=== PATIENT | female | born 1930 | race Caucasian/White ===

== ENCOUNTER 2017-08-30 11:42 | Emergency (ER) | payer MEDICARE, BC ==
[~2017-08-30 11:42] MED LIST: ALDACTONE25 MG PO; ASPIRIN E.C. 8181 M1 PO; CEFUROXIME250 MG PO; COLACE 100100 MG/CAP PO; DOXYCYCLINE 10100 MG PO; DUO-KAPS1 CAP PO; EFUDEX5% TP; IPRATROPIUM BROM3 M1 IH; LEVOXYL0.1 M1 PO; METAMUCIL1 PDR PO; NYSTATIN UD5 ML/CUP PO; OMEGA 31000 MG PO; OMEPRAZOLE20 MG PO; PREDNISONE10 M1 PO; REGLAN 10MG10 MG/TAB PO; REMERON15 MG PO; RT SPIRIVA INH18 MCG IH; SENOKOT PO; TUSSIONEX PENNKI5 ML PO; VITAMIN B121000 MC2 SL; VITAMIN D32000 IU PO; ZANTAC150 MG PO; ZOSTRIX 0.025% TP
[2017-08-30 12:56] LABS: URINE APPEARANCE HAZY; URINE COLOR YELLOW
[2017-08-30 12:57] LABS: URINE BILIRUBIN NEGATIVE (NEGATIVE); URINE BLOOD NEGATIVE (NEGATIVE); URINE GLUCOSE NEGATIVE (NEGATIVE); URINE KETONE NEGATIVE (NEGATIVE); URINE LEUKOCYTE ESTERASE 2+ (NEGATIVE); URINE MUCUS PRESENT (NOT PRESENT); URINE NITRATE NEGATIVE (NEGATIVE); URINE PROTEIN(semi-quant) NEGATIVE (NEGATIVE); URINE UROBILINOGEN NORMAL (NORMAL); URINE WBC 16-30 /hpf (0-3)
[2017-08-30 13:10] LABS: ALBUMIN 4.1 g/dL (3.5-5.0); BUN/CREATININE RATIO 37.6 (6.0-26.0); CALCIUM 9.7 mg/dL (8.4-10.2); POTASSIUM 3.8 mmol/L (3.6-5.0); TOTAL BILIRUBIN 0.7 mg/dL (0.2-1.3); TOTAL PROTEIN 7.4 g/dL (6.3-8.2)
[2017-08-30 13:11] LABS: LIPASE 67 U/L (23-300)
[2017-08-30 13:14] LABS: HEMATOCRIT 38.2 % (37.0-47.0); HEMOGLOBIN 12.4 g/dL (12.5-16.0); MEAN CELL VOLUME 87 fl (78-100); MEAN CORPUSCULAR HEMOGLOBIN 28 pg (27-31); MEAN CORPUSCULAR HGB CONC 33 g/dL (33-37); MEAN PLATELET VOLUME 9.7 fl (7.4-10.4); PLATELET COUNT 491 K/mm3 (130-400); RED BLOOD COUNT 4.41 M/mm3 (4.10-5.30); RED CELL DISTRIBUTION WIDTH 13.3 % (11.5-14.5); WHITE BLOOD COUNT 13.1 K/mm3 (4.8-10.8)
[2017-08-30 13:18] LABS: CKMB ISOENZYME 1.8 ng/mL (0.6-3.5)
[2017-08-30 13:23] LABS: TROPONIN-I < 0.03 ng/mL (0.00-0.06)
[2017-08-30 13:33] LABS: LYMPHOCYTE 11 % (20-51); MONOCYTE 3 % (3-10); NEUTROPHILS 86 % (42-75)
[2017-08-30 14:28] VITALS: BP 179/86
== END 2017-08-30 14:37 | disposition home or self-care (01) ==
LOC: ED 11:42
PROVIDERS: Physician Assistant
DX: N39.0 Urinary tract infection, site not specified (principal); K59.00 Constipation, unspecified; J44.9 Chronic obstructive pulmonary disease, unspecified; E03.9 Hypothyroidism, unspecified; H35.30 Unspecified macular degeneration

== ENCOUNTER 2017-09-07 10:38 | Emergency (ER) | payer MEDICARE, BC ==
[2017-09-07] MEDS ORDERED: AZO BLADDER CO300 MG PO (10:51)
[2017-09-07 11:25] LABS: EOS # 0.5 (0.04-0.40); EOS % 3.7 % (1.0-5.0); HEMATOCRIT 41.8 % (37.0-47.0); HEMOGLOBIN 13.4 g/dL (12.5-16.0); LYMPH# 1.8 (1.50-4.00); MEAN CELL VOLUME 87 fl (78-100); MEAN CORPUSCULAR HEMOGLOBIN 28 pg (27-31); MEAN CORPUSCULAR HGB CONC 32 g/dL (33-37); MEAN PLATELET VOLUME 10.2 fl (7.4-10.4); MONO # 1.2 (0.20-0.80); PLATELET COUNT 357 K/mm3 (130-400); RED CELL DISTRIBUTION WIDTH 14.1 % (11.5-14.5); WHITE BLOOD COUNT 13.2 K/mm3 (4.8-10.8)
[2017-09-07 11:29] LABS: NEU # 9.7 (1.40-6.50)
[2017-09-07 11:35] LABS: ALBUMIN 3.7 g/dL (3.5-5.0); BUN/CREATININE RATIO 23.4 (6.0-26.0); CALCIUM 9.1 mg/dL (8.4-10.2); POTASSIUM 4.3 mmol/L (3.6-5.0); TOTAL BILIRUBIN 1.2 mg/dL (0.2-1.3); TOTAL PROTEIN 6.6 g/dL (6.3-8.2)
[2017-09-07 11:44] LABS: D-DIMER 1.01 mg/L FEU (0.15-0.50)
[2017-09-07 11:47] LABS: TROPONIN-I < 0.03 ng/mL (0.00-0.06)
[2017-09-07 15:07] VITALS: BP 132/73
[2017-09-07] MEDS ORDERED: MIRALAX17 GM PO (16:49)
[2017-09-07] MEDS ORDERED: COLACE100 M1 PO (16:49)
== END 2017-09-07 15:05 | disposition other institution (70) ==
LOC: ED 10:38
PROVIDERS: Family Medicine
DX: J44.1 Chronic obstructive pulmonary disease with (acute) exacerbation (principal); R09.02 Hypoxemia; R10.13 Epigastric pain; E03.9 Hypothyroidism, unspecified; H35.30 Unspecified macular degeneration; Z87.891 Personal history of nicotine dependence
CPT/HCPCS: Q9967

== ENCOUNTER 2017-09-11 11:55 | Inpatient (IN) | payer MEDICARE, BC ==
[~2017-09-11] VITALS: Ht 165.1 cm; Wt 48.2 kg
[~2017-09-11 11:55] MED LIST changes: +AZO BLADDER CO300 MG PO; +COLACE100 M1 PO; +MIRALAX17 GM PO
[2017-09-11 17:36] VITALS: BP 139/64
[2017-09-11 19:02] VITALS: BP 157/87
--- NOTE | 2017-09-11 19:05 | NUR ---
REPORT RECEIVED FROM RONALD De La Cruz RN.
--- NOTE | 2017-09-11 20:15 | NUR ---
THIS RN IN WITH PATIENT TO ADMINISTER HS MEDICATIONS. PATIENT IS ASLEEP ALREADY, BUT IS EASILY AWAKENED. PATIENT IS DROWSY, BUT IS ORIENTED X3 AND CONSUMES HER MEDICATIONS WITH NO DIFFICULTY. PATIENT DID REQUIRE SOME MILD EDUCATION AND ENCOURAGMENT TO TAKE THE MEDICATION, SHE HAD FORGOTTEN WHAT SHE WAS PRESCRIBED. PATIENT REQUESTED ASSISTANCE IN AMBULATING TO THE BATHROOM, AND DOES SO WITH SBA ONLY. PATIENT USES HER WALKER AND HAS A STEADY GAIT. PATIENT ALSO PROVIDED EDUCATION AT THIS TIME REGARDING AMBULATING SAFELY, SHE WANTED TO WALK IN HER REGULAR SOCKS, BUT AGREED TO WALK WITH HER SHOES ON AFTER ENCOURAGEMENT. PATIENT DOES NOT APPEAR TO BE IN ANY OBVIOUS DISTRESS AT THIS TIME. PATIENT DENIES HAVING ANY PAIN. PATIENT IS ASSISTED BACK INTO BED. HOB ELEVATED TO A 45 DEGREE ANGLE PER HER REQUEST. BED RAILS UP X2. CALL LIGHT WITHIN REACH. BED ALARM ARMED. CLOSE MONITORING AND HOURLY ROUNDING CONTINUE.
--- NOTE | 2017-09-12 00:56 | NUR ---
PATIENT CONTINUES TO REST QUIETLY IN BED. PATIENT DOES NOT APPEAR TO BE IN ANY OBVIOUS DISTRESS AT THIS TIME. PATIENT CHANGES HER POSITION IN BED INDEPENDENTLY THROUGHOUT THE NIGHT. PATIENT HAS AMBULATED TO THE BATHROOM SEVERAL TIMES THROUGHOUT THE NIGHT WITH NO ISSUES. PATIENT REQUIRES STANDBY ASSIST ONLY. PATIENT WOKE UP ONCE THIS EVENING, AND SET OFF HER BED ALARM. UPON ENTERING THE ROOM, PATIENT WAS OBSERVED TO BE ANXIOUS, EVIDENCED BY HER TONE OF VOICE, RAPID RATE OF BREATHING AND RESTLESSNESS. PATIENT STATES ANXIOUSLY "I COULDN'T FIND MY CALL LIGHT!" HER CALL LIGHT WAS OBSERVED TO BE SLIGHTLY WEDGED BETWEEN HER MATTRESS AND SIDE RAIL. PATIENT IS PROVIDED ACTIVE LISTENING, AND HER ANXIETY RESOLVES. HOB ELEVATED TO A 45 DEGREE ANGLE. BED RAILS UP X2. CALL LIGHT WITHIN REACH. BED ALARM ARMED. PATIENT STATES SHE DOES NOT WANT THE SCD'S ON ANY LONGER TONIGHT. CLOSE MONITORING AND HOURLY ROUNDING CONTINUE.
--- NOTE | 2017-09-12 04:32 | NUR ---
PATIENT CONTINUES TO REST QUIETLY IN BED. PATIENT CHANGES HER POSITION IN BED INDEPENDENTLY THROUGHOUT THE NIGHT. PATIENT DOES NOT APPEAR TO BE IN ANY OBVIOUS DISTRESS AT THIS TIME. PATIENT HAS AMBULATED TO THE BATHROOM SEVERAL TIMES THROUGHOUT THE NIGHT. BED RAILS UP X2. CALL LIGHT WITHIN REACH. BED ALARM ARMED. CLOSE MONITORING AND HOURLY ROUNDING CONTINUE.
[2017-09-12 06:56] VITALS: BP 141/75
--- NOTE | 2017-09-12 07:01 | NUR ---
REPORT GIVEN TO CLAUDIA CAMPOS.
--- NOTE | 2017-09-12 07:12 | NUR ---
Received report from CLAUDIA Chua.
--- NOTE | 2017-09-12 07:14 | NUR ---
REPORT GIVEN TO CELSO Rogel RN.
--- NOTE | 2017-09-12 09:30 | NUR ---
Patient sitting in chair at bedside when this nurse entered room. Alert and oriented to person, place and time. Tolerated assessment well. Patient is able to voice her needs. BLCTA in upper, middle and lower lobes anterior and posterior. Abdomen is soft, flat with no pain with deep or soft palpation. No masses noted. Bowel sounds heard in all four qaudrants. Capillary refill brisk less than three seconds. Skin is intact with no lesions noted, warm to touch and pale. IV to right wrist. No drainage, warmth or edema noted at IV site. Minimal edema noted to bilateral lower extremities. Patient was able to voice pain with ambulation on the left foot. This nurse noted hand tremors while at rest this morning. Complaints of feeling anxious and patient stated that she had stopped her antianxiety medication awhile ago but would like to start another medication. Resident did ambulate to the bathroom and did show signs of dyspnea with excertion but did relax at rest. Call light with in reach and will continue to moniotr.
--- NOTE | 2017-09-12 10:47 | NUR ---
Patient stated that she feels tense and this is why she has hand tremors occasionally. Patients granddaughter stated that she doesn't want the patient to have something that could cause a fall while on medication. Patient stated that she wouldn't mind something in a small dose to help. Information communicated to NIHCOL Moran.
--- NOTE | 2017-09-12 12:52 | NUR ---
Patient continues to sit in recliner chair at bedside. Patient denies pain at this time and is able to voice her needs. Call light and fluids with in reach. Will continue to monitor.
--- NOTE | 2017-09-12 17:59 | NUR ---
Patient continues to sit in recliner chair at bedside. Patients granddaughter was here most of the day and left at 1745. Per the granddaughter the patient had a productive day. She will return in the morning between 1030-11. Patient denies needing anything at this time. Call light with in reach. Will continue to monitor.
[2017-09-12 18:20] VITALS: BP 139/62
--- NOTE | 2017-09-12 18:44 | NUR ---
Report given to CLAUDIA Chua.
--- NOTE | 2017-09-12 18:45 | NUR ---
REPORT RECEIVED FROM MARCIANO De La Cruz RN STUDENT.
--- NOTE | 2017-09-12 20:48 | NUR ---
PATIENT ADMINISTERED HER HS MEDICATIONS. FOREST DOES NOT APPEAR TO BE IN ANY OBVIOUS DISTRESS AT THIS TIME. PATIENT IS OBSERVED TO BE IN BED, ALREADY SLEEPING, BUT SHE IS EASILY AROUSABLE. PATIENT DENIES HAVING ANY PAIN. PATIENT CONSUMES HER MEDICATIONS WITH NO PROBLEMS, BUT VOICES HER DISLIKE FOR THE ORAL PREDNISONE. PATIENT REFUSED THE SCD'S AGAIN TONIGHT. PATIENT HAS NO REQUESTS OR OTHER COMPLAINTS AT THIS TIME. PATIENT'S HOB IS ELEVATED TO A 45 DEGREE ANGLE PER HER REQUEST. BED RAILS UP X2. BED ALARM ARMED. CALL LIGHT WITHIN REACH. CLOSE MONITORING AND HOURLY ROUNDING CONTINUE.
--- NOTE | 2017-09-13 00:21 | NUR ---
PATIENT CONTINUES TO REST QUIETLY IN BED. PATIENT CHANGES HER POSITION IN BED INDEPENDENTLY THROUGHOUT THE NIGHT. PATIENT DOES NOT APPEAR TO BE IN ANY OBVIOUS DISTRESS AT THIS TIME. PATIENT HAS NOT REQUESTED ASSISTANCE IN AMBULATING TO THE BATHROOM YET TONIGHT, WHICH SHE DID LAST NIGHT MULTIPLE TIMES. PATIENT HAS HAD NO COMPLAINTS OR REQUESTS. HOB ELEVATED TO A 45 DEGREE ANGLE PER PATIENT'S REQUEST. BED RAILS UP X2. BED ALARM ARMED. CALL LIGHT WITHIN REACH. CLOSE MONITORING AND HOURLY ROUNDING CONTINUE.
--- NOTE | 2017-09-13 04:10 | NUR ---
PATIENT CONTINUES TO REST QUIETLY IN BED. PATIENT DOES NOT APPEAR TO BE IN ANY OBVIOUS DISTRESS AT THIS TIME. PATIENT CHANGES HER POSITION IN BED INDEPENDENTLY THROUGOUT THE NIGHT. PATIENT'S HOB REMAINS ELEVATED AT A 45 DEGREE ANGLE PER PER REQUEST. BED RAILS UP X2. BED ALARM ARMED. CALL LIGHT WITHIN REACH. CLOSE MONITORING AND HOURLY ROUNDING CONTINUE.
[2017-09-13 06:39] VITALS: BP 144/74
--- NOTE | 2017-09-13 06:51 | NUR ---
REPORT GIVEN TO MARCIANO RN STUDENT.
--- NOTE | 2017-09-13 07:10 | NUR ---
Received report from CLAUDIA Chua.
--- NOTE | 2017-09-13 08:45 | NUR ---
Patient sitting in recliner chair eating breakfast this morning when this nurse entered the room. Alert and oriented to person, palce and time. Tolerated the assessment. BLCTA in upper, middle and lower lobes anterior and posterior. Abdomen is flat but does seem to be more firm this morning with palpation. No massess or gaurding noted with deep or soft palpation. Bowel sounds noted in all four quadrants. Patient denied pain with palpation. BLLE ankles have edema with 1+pitting that rebounds fast. Bilateral heels are reddened, intact and blanchabel. Toes on bilateral feet are red with shiny skin on the top of the bony areas of toes. Negative Homans sign and no warmth or redness noted. Patient was able to rise with one attempt from the chair. Reddened area to the dorsal part of the buttocks. Intact and patient does state that she has some tenderness in this area. IV site to right wrist. no warmth, edema or drainage noted. ABG's were drawn while in the room and patient tolerated well. Skin is warm, dry and intact with no lessions noted. Minimal bruising on the left medial wrist from previous ABG's drawn. Varying colors. Continues to use the incentive spirometer. Non-skid socks applied while up from bed. Patient is able to voice her needs and call light with in reach. Will continue to monitor.
--- NOTE | 2017-09-13 09:31 | NUR ---
Air matress applied to bed, chair cushion to help while out of bed. x2 7.5x7.5 Mepilex applied to reddened areas below the buttocks.
--- NOTE | 2017-09-13 09:49 | NUR ---
Dyspnea with exertion during shower this morning. Patient was encouraged to slow her breathing and try to relax. Patient returned to normal with in a few minutes with unlabored breathing.
--- NOTE | 2017-09-13 11:20 | NUR ---
Patient and patients granddaughters would like for the patient to be D/C'd on 09-16-17 if patient continues to do well. Dr. Donnelly is out of the office today. As the patient is on swing bed, PT and OT will need to be involved with the care coordination and transition to home. Per PT, they will re-evaluate on 09-16-17 and update the healthcare team.
--- NOTE | 2017-09-13 15:25 | NUR ---
Patient continues to sit in the recliner chair at bedside. Patient has been enjoying a puzzle with the assistance of staff members. Patient is very jovial and excited to be doing something to keep her busy. Patient continues to voice her needs and states that she is not in any pain. Call light with in reach and will continue to monitor.
--- NOTE | 2017-09-13 17:32 | NUR ---
Patient finished a puzzle and is eating supper at this time. Granddaughter here to visit. Patient continues to be in a Jovial mood visiting with staff. Call light with in reach and will continue to monitor.
[2017-09-13 18:56] VITALS: BP 136/57
--- NOTE | 2017-09-13 19:08 | NUR ---
Report given to CLAUDIA Moise.
--- NOTE | 2017-09-13 19:19 | NUR ---
Report received from Yeny Ochoa nursing care partner.
--- NOTE | 2017-09-13 19:50 | NUR ---
Resting in bed, with eye mask on. Bed alarm set. Removes eye mask when spoken too. Denies SOB, chest pain or nausea. Denies abd pain. Denies having any pain. See shift assessment.
--- NOTE | 2017-09-13 22:40 | NUR ---
Q hourly checks done. Has been resting in bed, awake and TV on, Ambulated to the bathroom with one person assist. Able to bearfull weight and gait steady. Tolerated breathing treatment without difficulty, denies SOB or chest pain
--- NOTE | 2017-09-14 05:46 | NUR ---
Q hourly checks done. Bed alarms set. Pt has repositioned self. Currently resting in bed with sleep mask on. At 0520 ambulated to the bathroom. Pt voided, urine missed collection hat. Used gait belt, erp engineer socks and Rob RESTAURANT ASSISTANT at side. Gait steady. Stated she became slight SOB, when ambulating back to bed. Sa02 97% on room air. Pulse 81, Respirations even and unlabored.
[2017-09-14 06:00] VITALS: BP 148/68
--- NOTE | 2017-09-14 07:20 | NUR ---
Report given to Solange Castanon RN
--- NOTE | 2017-09-14 09:15 | NUR ---
Patient alert and oriented. Sitting up in the chair. Denies pain. Refused miralax, states "I've been going too much." Difficulty noted with swallowing prednisone tablet this morning. Patient states "I just can't swallow big pills." Patient's granddaughters are at bedside with questions about anticipated discharge date. Granddaughters state that they would like for her to be discharged on Saturday or Saturday so that they can be present to help transition her back home for a week prior to the granddaughter returning to [place]. Granddaughters state that they feel like she is back to her baseline. Patient denies needs or questions. Fall precautions in place.
[2017-09-14 18:18] VITALS: BP 140/65
--- NOTE | 2017-09-14 20:45 | NUR ---
Report received from Solange TAYLOR. Patient awaken for assessment and HS medications. Oriented x4. Denies pain. Assessment completed. Scheduled HS medications administered. Refused Miralax. Bed alarm on. Call light in reach.
--- NOTE | 2017-09-15 00:15 | NUR ---
Resting with eyes closed. No signs of pain or distress. Bed alarm on. Call light in reach.
--- NOTE | 2017-09-15 00:56 | NUR ---
Report to Guadalupe TAYLOR.
--- NOTE | 2017-09-15 01:00 | NUR ---
REPORT RECEIVED FROM ANDRE De La Cruz LPN.
--- NOTE | 2017-09-15 04:07 | NUR ---
PATIENT CONTINUES TO REST QUIETLY IN BED. PATIENT DOES NOT APPEAR TO BE IN ANY DISTRESS. PATIENT CHANGES HER POSITION IN BED INDEPENDENTLY THROUGHOUT THE NIGHT. HOB ELEVATED TO A 45 DEGREE ANGLE PER PATIENT'S REQUEST. BED RAILS UP X2. BED ALARM ARMED. CALL LIGHT WITHIN REACH. CLOSE MONITORING AND HOURLY ROUNDING CONTINUE.
[2017-09-15 05:55] VITALS: BP 161/78
[2017-09-15 06:25] VITALS: BP 161/78
--- NOTE | 2017-09-15 07:09 | NUR ---
REPORT GIVEN TO RONALD De La Cruz RN.
--- NOTE | 2017-09-15 09:50 | NUR ---
Patient alert and oriented. Sitting up in the chair. Denies pain. Reports shortness of breath "once in a while" with exertion. Has intermittent dry cough. Dressings removed from back of bilateral thighs under buttocks. Skin is intact and blanchable, skin appears dry with small amount of redness noted to back of right thigh. Skin protectant cream applied. Patient reports that her legs are tingling, states that this is not new and happens intermittently at home. Patient asks "why are you guys not putting support hose on me?" Patient states that she wears "support hose" at home to help with the tingling in her legs. Dr. Villanueva notified of patient's request for "support hose." LASHA hose ordered and applied to bilateral lower exxtremities. Patient asks when she will be discharged to home. States that she is ready to be home and out of the hospital. Denies needs or questions at this time. Fall precautions in place.
--- NOTE | 2017-09-15 13:40 | NUR ---
Patient alert and oriented. Sitting up in the chair. Denies pain. Patient's granddaughter Yeny is present. Yeny states that she feels like her grandmother is back to her baseline and asks if the patient could be discharged on Saturday. Patient also states that she would like to go home as soon as possible. Dr. Villanueva notified. Two day medicare notice given to patient and explained. Form signed. Will notify Dr. Donnelly in am of patients request to be discharged Saturday09/17/17. Patient and granddaughter deny questions or needs at this time. Fall precautions in place.
[2017-09-15 18:35] VITALS: BP 132/63
--- NOTE | 2017-09-15 19:10 | NUR ---
Report received from Solange Castanon RN
--- NOTE | 2017-09-15 20:30 | NUR ---
2020 Pt resting in bed, with eye mask on. Bed alarm set. Removes eye mask when spoken too. Denies having any chest pain. No c/o's of SOB. When I asked pt if she was SOB. Pt stated "a little." Lungs CTA. Heart rate 91, respirations 24 and even. Sa02 98% on room air. 2029 See shift assessment.
--- NOTE | 2017-09-16 00:38 | NUR ---
REPORT RECEIVED FROM MYLES Rogel RN.
--- NOTE | 2017-09-16 04:41 | NUR ---
PATIENT CONTINUES TO REST QUIETLY IN BED. PATIENT CHANGES HER POSITION IN BED INDEPENDENTLY THROUGHOUT THE NIGHT. PATIENT DOES NOT APPEAR TO BE IN ANY OBVIOUS DISTRESS. PATIENT HAS NO COMPLAINTS OR REQUESTS. PATIENT AMBULATES TO THE BATHROOM WITH SBA FROM STAFF SOMETIME THROUGHOUT THE NIGHT. HOB ELEVATED TO A 35 DEGREE ANGLE PER PATIENT'S REQUEST. BED RAILS UP X2. BED ALARM ARMED. CALL LIGHT WITHIN REACH. CLOSE MONITORING AND HOURLY ROUNDING CONTINUE.
[2017-09-16 06:24] VITALS: BP 146/74
--- NOTE | 2017-09-16 07:00 | NUR ---
REPORT GIVEN TO RONALD De La Cruz RN.
[2017-09-16] MEDS ORDERED: LEVOTHYROXIN0.088 MG PO (12:09)
[2017-09-16 12:45] LABS: ALBUMIN 2.7 g/dL (3.5-5.0); CALCIUM 8.1 mg/dL (8.4-10.2); POTASSIUM 4.1 mmol/L (3.6-5.0)
[2017-09-16 13:34] VITALS: BP 132/63
--- NOTE | 2017-09-16 14:52 | NUR ---
Patient alert and oriented. Denies pain. Reports mild shortness of breath with exertion. Patients granddaughter oumar at bedside. Patient discharged to home. Discharge instructions provided. Prescription sent to [facility]. Patient and granddaughter ask questions regarding home medications. They are unsure of what nebulizer medications patient has at home. Instructed to call Dr. Donnelly with medication needs or bring list to follow up appointment. Patient and granddaughter verbalize understanding and deny questions or needs at this time. Patient out of facility via wheelchair to [facility] without incident. Steady gait noted.
== END 2017-09-16 14:52 | disposition home health service (06) | DRG 948 ==
LOC: MED/SURG 11:55
PROVIDERS: Family Medicine; ADMIT Physician Assistant
DX: R53.81 Other malaise (principal); E03.9 Hypothyroidism, unspecified; J44.9 Chronic obstructive pulmonary disease, unspecified; Z87.891 Personal history of nicotine dependence
CPT/HCPCS: J1650; J7512

== ENCOUNTER → 2017-10-18 | Outpatient (CLI) | payer MEDICARE, BC ==
[~2017-10-18] MED LIST changes: +LEVOTHYROXIN0.088 MG PO
[2017-10-18 16:33] LABS: URINE APPEARANCE CLEAR; URINE COLOR YELLOW
[2017-10-18 16:34] LABS: PH-URINE 6.5 (5.0 - 8.0); URINE BILIRUBIN NEGATIVE (NEGATIVE); URINE BLOOD NEGATIVE (NEGATIVE); URINE GLUCOSE NEGATIVE (NEGATIVE); URINE KETONE NEGATIVE (NEGATIVE); URINE LEUKOCYTE ESTERASE 1+ (NEGATIVE); URINE NITRATE NEGATIVE (NEGATIVE); URINE PROTEIN(semi-quant) TRACE mg/dL (NEGATIVE); URINE UROBILINOGEN NORMAL (NORMAL); URINE WBC 16-30 /hpf (0-3)
== END ==
LOC: LAB 15:47
PROVIDERS: Family Medicine
DX: R30.0 Dysuria (principal)

== ENCOUNTER → 2017-12-24 | Outpatient (CLI) | payer MEDICARE, BC ==
[2017-12-24 15:40] LABS: ALBUMIN 4.3 g/dL (3.5-5.0); BUN/CREATININE RATIO 34.8 (6.0-26.0); CALCIUM 10.6 mg/dL (8.4-10.2); POTASSIUM 4.4 mmol/L (3.6-5.0); TOTAL BILIRUBIN 0.4 mg/dL (0.2-1.3); TOTAL PROTEIN 7.6 g/dL (6.3-8.2)
[2017-12-25 00:08] LABS: PTH,INTACT 26.3 pg/mL (6.6-88.9)
== END ==
LOC: LAB 15:07
PROVIDERS: Family Medicine
DX: E83.51 Hypocalcemia (principal); I10 Essential (primary) hypertension; E03.9 Hypothyroidism, unspecified; Z88.2 Allergy status to sulfonamides

== ENCOUNTER → 2018-07-25 | Outpatient (CLI) | payer MEDICARE, BC | LOC: LAB 14:17 | DX: E03.9 Hypothyroidism, unspecified (principal) ==

== ENCOUNTER → 2018-12-09 | Outpatient (CLI) | payer MEDICARE, BC ==
[2018-12-09 15:05] LABS: EOS # 0.2 (0.04-0.40); EOS % 2.4 % (1.0-5.0); HEMATOCRIT 38.6 % (37.0-47.0); LYMPH# 3.3 (1.50-4.00); MEAN CELL VOLUME 88 fl (78-100); MEAN CORPUSCULAR HEMOGLOBIN 28 pg (27-31); MEAN CORPUSCULAR HGB CONC 31 g/dL (33-37); MEAN PLATELET VOLUME 9.6 fl (7.4-10.4); MONO # 0.6 (0.20-0.80); NEU # 5.5 (1.40-6.50); PLATELET COUNT 364 K/mm3 (130-400); RED BLOOD COUNT 4.37 M/mm3 (4.10-5.30); RED CELL DISTRIBUTION WIDTH 13.5 % (11.5-14.5); WHITE BLOOD COUNT 9.7 K/mm3 (4.8-10.8)
[2018-12-09 15:35] LABS: ALBUMIN 4.8 g/dL (3.5-5.0); POTASSIUM 4.1 mmol/L (3.6-5.0); TOTAL BILIRUBIN 0.6 mg/dL (0.2-1.3); TOTAL PROTEIN 8.2 g/dL (6.3-8.2)
[2018-12-09 15:57] LABS: PH-URINE 5.5 (5.0 - 8.0); URINE APPEARANCE CLEAR; URINE BILIRUBIN NEGATIVE (NEGATIVE); URINE COLOR YELLOW; URINE GLUCOSE NEGATIVE (NEGATIVE); URINE KETONE NEGATIVE (NEGATIVE); URINE NITRATE NEGATIVE (NEGATIVE); URINE PROTEIN(semi-quant) TRACE mg/dL (NEGATIVE); URINE UROBILINOGEN NORMAL (NORMAL)
[2018-12-09 15:58] LABS: URINE BLOOD TRACE (NEGATIVE); URINE LEUKOCYTE ESTERASE TRACE (NEGATIVE)
== END ==
LOC: LAB 14:54
PROVIDERS: Family Medicine
DX: E55.9 Vitamin D deficiency, unspecified (principal); R30.0 Dysuria; Z01.419 Encounter for gynecological examination (general) (routine) without abnormal findings

== ENCOUNTER → 2018-12-10 | Outpatient (CLI) | payer MEDICARE, BC ==
[~2018-12-10] VITALS: Ht 162.6 cm; Wt 50.5 kg
[2018-12-10 14:00] VITALS: BP 157/84
== END ==
LOC: AMSURD 13:49
DX: R00.2 Palpitations (principal)

== ENCOUNTER → 2018-12-15 | Outpatient (CLI) | payer MEDICARE, BC ==
[2018-12-10 14:00] VITALS: BP 157/84
== END ==
LOC: RAD 16:28
DX: R07.9 Chest pain, unspecified (principal)

== ENCOUNTER → 2019-06-22 | Outpatient (CLI) | payer MEDICARE, BC ==
[2019-06-18 11:11] VITALS: BP 143/68
[~2019-06-22] MED LIST changes: +ALBUTEROL SULFAT3 M3 IH; +BROVANA15 MCG/2 M IH; +LEVOTHYROXIN0.075 MG PO; +MULTIVITAMIN1 SGL PO; +PREDNISONE20 M1 PO; +PULMICORT R1 MG/2 ML IH
[2019-06-22 10:56] LABS: HEMATOCRIT 37.2 % (37.0-47.0); HEMOGLOBIN 11.9 g/dL (12.5-16.0); MEAN CELL VOLUME 89 fl (78-100); MEAN CORPUSCULAR HEMOGLOBIN 29 pg (27-31); MEAN CORPUSCULAR HGB CONC 32 g/dL (33-37); MEAN PLATELET VOLUME 9.4 fl (7.4-10.4); RED BLOOD COUNT 4.16 M/mm3 (4.10-5.30); RED CELL DISTRIBUTION WIDTH 12.9 % (11.5-14.5); WHITE BLOOD COUNT 19.7 K/mm3 (4.8-10.8)
[2019-06-22 11:03] LABS: PLATELET COUNT 600 K/mm3 (130-400)
[2019-06-22 11:08] LABS: POTASSIUM 3.7 mmol/L (3.5-5.1)
[2019-06-22 11:09] LABS: CALCIUM 8.9 mg/dL (8.3-10.5)
[2019-06-22 11:12] LABS: TOTAL BILIRUBIN 0.4 mg/dL (0.2-1.2)
[2019-06-22 11:44] LABS: URINE APPEARANCE HAZY; URINE BILIRUBIN NEGATIVE (NEGATIVE); URINE BLOOD TRACE (NEGATIVE); URINE COLOR YELLOW; URINE GLUCOSE NEGATIVE (NEGATIVE); URINE KETONE NEGATIVE (NEGATIVE); URINE LEUKOCYTE ESTERASE 2+ (NEGATIVE); URINE MUCUS PRESENT (NOT PRESENT); URINE NITRATE NEGATIVE (NEGATIVE); URINE PROTEIN(semi-quant) 1+ mg/dL (NEGATIVE); URINE UROBILINOGEN NORMAL (NORMAL); URINE WBC 16-30 /hpf (0-3)
[2019-06-22 11:45] LABS: LYMPHOCYTE 10 % (20-51); MONOCYTE 3 % (3-10); NEUTROPHILS 87 % (42-75)
== END ==
LOC: LAB 10:44
PROVIDERS: Family Medicine
DX: N18.9 Chronic kidney disease, unspecified (principal); D63.1 Anemia in chronic kidney disease; J02.9 Acute pharyngitis, unspecified; R30.0 Dysuria

== ENCOUNTER 2019-07-27 15:31 | Emergency (ER) | payer MEDICARE, BC ==
[~2019-07-27] VITALS: Wt 47.6 kg
[2019-07-27 16:09] LABS: ALBUMIN 4.2 g/dL (3.4-4.8); POTASSIUM 4.1 mmol/L (3.5-5.1)
[2019-07-27 16:10] LABS: CALCIUM 9.8 mg/dL (8.3-10.5)
[2019-07-27 16:11] LABS: TOTAL PROTEIN 7.8 g/dL (6.2-8.1)
[2019-07-27 16:13] LABS: TOTAL BILIRUBIN 0.8 mg/dL (0.2-1.2)
[2019-07-27 16:16] LABS: EOS # 0.3 (0.04-0.40); EOS % 2.6 % (1.0-5.0); HEMATOCRIT 37.1 % (37.0-47.0); HEMOGLOBIN 11.5 g/dL (12.5-16.0); LYMPH# 1.9 (1.50-4.00); MEAN CELL VOLUME 89 fl (78-100); MEAN CORPUSCULAR HEMOGLOBIN 28 pg (27-31); MEAN CORPUSCULAR HGB CONC 31 g/dL (33-37); MEAN PLATELET VOLUME 10.4 fl (7.4-10.4); MONO # 1.1 (0.20-0.80); PLATELET COUNT 363 K/mm3 (130-400); RED BLOOD COUNT 4.17 M/mm3 (4.10-5.30); RED CELL DISTRIBUTION WIDTH 14.6 % (11.5-14.5)
[2019-07-27 16:17] LABS: NEU # 9.6 (1.40-6.50)
[2019-07-27 18:20] VITALS: BP 171/85
== END 2019-07-27 17:43 | disposition other institution (70) ==
LOC: ED 15:31
PROVIDERS: Nurse Practitioner Primary Care
DX: K55.9 Vascular disorder of intestine, unspecified (principal); I10 Essential (primary) hypertension; J44.9 Chronic obstructive pulmonary disease, unspecified; E07.9 Disorder of thyroid, unspecified; Z90.710 Acquired absence of both cervix and uterus; Z90.49 Acquired absence of other specified parts of digestive tract; Z88.2 Allergy status to sulfonamides; Z79.82 Long term (current) use of aspirin
CPT/HCPCS: J2270; J2405; Q9967

== ENCOUNTER 2019-07-27 17:47 | Inpatient (IN) | payer MEDICARE, BC ==
[~2019-07-27] VITALS: Ht 162.6 cm; Wt 48.8 kg
[2019-07-27 17:54] VITALS: BP 167/79
[2019-07-27 23:28] VITALS: BP 115/65
[2019-07-28 03:14] VITALS: BP 115/63
[2019-07-28 06:20] VITALS: BP 102/60
[2019-07-28 07:23] LABS: EOS # 0.5 (0.04-0.40); EOS % 6.2 % (1.0-5.0); HEMATOCRIT 30.4 % (37.0-47.0); HEMOGLOBIN 9.4 g/dL (12.5-16.0); LYMPH# 1.7 (1.50-4.00); MEAN CELL VOLUME 90 fl (78-100); MEAN CORPUSCULAR HEMOGLOBIN 28 pg (27-31); MEAN CORPUSCULAR HGB CONC 31 g/dL (33-37); MEAN PLATELET VOLUME 10.3 fl (7.4-10.4); MONO # 0.8 (0.20-0.80); NEU # 4.9 (1.40-6.50); PLATELET COUNT 268 K/mm3 (130-400); RED BLOOD COUNT 3.37 M/mm3 (4.10-5.30); RED CELL DISTRIBUTION WIDTH 14.7 % (11.5-14.5); WHITE BLOOD COUNT 7.9 K/mm3 (4.8-10.8)
[2019-07-28 07:27] LABS: CALCIUM 8.1 mg/dL (8.3-10.5)
[2019-07-28 11:00] VITALS: BP 160/79
[2019-07-28 15:27] VITALS: BP 136/73
[2019-07-28 23:13] VITALS: BP 138/71
[2019-07-29] VITALS (7 sets, daily range): BP systolic 120–172; BP diastolic 68–97
[2019-07-29 10:37] LABS: HEMATOCRIT 29.3 % (37.0-47.0); HEMOGLOBIN 9.1 g/dL (12.5-16.0); MEAN CELL VOLUME 90 fl (78-100); MEAN CORPUSCULAR HEMOGLOBIN 28 pg (27-31); MEAN CORPUSCULAR HGB CONC 31 g/dL (33-37); MEAN PLATELET VOLUME 10.2 fl (7.4-10.4); PLATELET COUNT 243 K/mm3 (130-400); RED BLOOD COUNT 3.26 M/mm3 (4.10-5.30); RED CELL DISTRIBUTION WIDTH 14.3 % (11.5-14.5)
[2019-07-29 10:43] LABS: ALBUMIN 3.1 g/dL (3.4-4.8); POTASSIUM 3.8 mmol/L (3.5-5.1)
[2019-07-29 10:45] LABS: CALCIUM 8.1 mg/dL (8.3-10.5)
[2019-07-29 10:46] LABS: TOTAL PROTEIN 5.8 g/dL (6.2-8.1)
[2019-07-29 10:48] LABS: TOTAL BILIRUBIN 0.5 mg/dL (0.2-1.2)
[2019-07-29 10:53] LABS: BAND 3 % (0-10); LYMPHOCYTE 10 % (20-51); MONOCYTE 4 % (3-10); NEUTROPHILS 81 % (42-75)
[2019-07-29 20:16] LABS: HEMOGLOBIN 9.2 g/dL (12.5-16.0); MEAN CELL VOLUME 89 fl (78-100); MEAN CORPUSCULAR HEMOGLOBIN 27 pg (27-31); MEAN CORPUSCULAR HGB CONC 31 g/dL (33-37); MEAN PLATELET VOLUME 10.1 fl (7.4-10.4); PLATELET COUNT 267 K/mm3 (130-400); RED BLOOD COUNT 3.36 M/mm3 (4.10-5.30); RED CELL DISTRIBUTION WIDTH 14.4 % (11.5-14.5); WHITE BLOOD COUNT 13.4 K/mm3 (4.8-10.8)
[2019-07-29 20:28] LABS: POTASSIUM 3.5 mmol/L (3.5-5.1); SODIUM 140 mmol/L (136-145)
[2019-07-29 20:30] LABS: CALCIUM 8.4 mg/dL (8.3-10.5); GLUCOSE 98 mg/dL (65-105)
[2019-07-29 20:39] LABS: CARBON DIOXIDE 14 mmol/L (23-31)
[2019-07-29 21:22] LABS: BAND 1 % (0-10); LYMPHOCYTE 6 % (20-51); MONOCYTE 2 % (3-10); NEUTROPHILS 91 % (42-75)
[2019-07-29 21:23] LABS: TROPONIN-I < 0.03 ng/mL (<0.030)
[2019-07-30 03:05] VITALS: BP 139/70
[2019-07-30 03:33] LABS: URINE APPEARANCE CLEAR; URINE BILIRUBIN NEGATIVE (NEGATIVE); URINE BLOOD NEGATIVE (NEGATIVE); URINE COLOR YELLOW; URINE GLUCOSE NEGATIVE (NEGATIVE); URINE KETONE 3+ (NEGATIVE); URINE LEUKOCYTE ESTERASE TRACE (NEGATIVE); URINE MUCUS PRESENT (NOT PRESENT); URINE NITRATE NEGATIVE (NEGATIVE); URINE PROTEIN(semi-quant) TRACE mg/dL (NEGATIVE); URINE UROBILINOGEN NORMAL (NORMAL); URINE WBC 0-1 /hpf (0-3)
[2019-07-30 06:02] VITALS: BP 115/66
[2019-07-30 06:05] LABS: HEMOGLOBIN 8.8 g/dL (12.5-16.0); MEAN CELL VOLUME 89 fl (78-100); MEAN CORPUSCULAR HEMOGLOBIN 28 pg (27-31); MEAN CORPUSCULAR HGB CONC 31 g/dL (33-37); PLATELET COUNT 253 K/mm3 (130-400); RED BLOOD COUNT 3.15 M/mm3 (4.10-5.30); RED CELL DISTRIBUTION WIDTH 14.4 % (11.5-14.5); WHITE BLOOD COUNT 8.2 K/mm3 (4.8-10.8)
[2019-07-30 06:24] LABS: POTASSIUM 3.7 mmol/L (3.5-5.1)
[2019-07-30 06:25] LABS: CALCIUM 8.2 mg/dL (8.3-10.5)
[2019-07-30 06:26] LABS: LYMPHOCYTE 1 % (20-51); MONOCYTE 2 % (3-10); NEUTROPHILS 97 % (42-75)
[2019-07-30 11:26] VITALS: BP 122/64
[2019-07-30 15:09] VITALS: BP 108/57
[2019-07-30 18:32] VITALS: BP 127/66
[2019-07-30 23:00] VITALS: BP 126/64
[2019-07-31 03:00] VITALS: BP 122/68
[2019-07-31 06:15] VITALS: BP 117/67
[2019-07-31 10:53] VITALS: BP 158/73
[2019-07-31 14:59] VITALS: BP 176/73
[2019-07-31 18:00] VITALS: BP 171/78
[2019-07-31 23:32] VITALS: BP 149/83
[2019-08-01 03:00] VITALS: BP 139/75
[2019-08-01 06:19] VITALS: BP 164/77
[2019-08-01 10:05] LABS: EOS # 0.6 (0.04-0.40); HEMATOCRIT 31.3 % (37.0-47.0); HEMOGLOBIN 9.9 g/dL (12.5-16.0); LYMPH# 1.2 (1.50-4.00); MEAN CELL VOLUME 87 fl (78-100); MEAN CORPUSCULAR HEMOGLOBIN 28 pg (27-31); MEAN CORPUSCULAR HGB CONC 32 g/dL (33-37); MEAN PLATELET VOLUME 10.2 fl (7.4-10.4); MONO # 0.7 (0.20-0.80); PLATELET COUNT 310 K/mm3 (130-400); RED BLOOD COUNT 3.59 M/mm3 (4.10-5.30); RED CELL DISTRIBUTION WIDTH 14.8 % (11.5-14.5); WHITE BLOOD COUNT 8.5 K/mm3 (4.8-10.8)
[2019-08-01 10:13] LABS: ALBUMIN 3.3 g/dL (3.4-4.8)
[2019-08-01 10:14] LABS: CALCIUM 8.4 mg/dL (8.3-10.5)
[2019-08-01 10:16] LABS: TOTAL PROTEIN 6.1 g/dL (6.2-8.1)
[2019-08-01 10:17] LABS: TOTAL BILIRUBIN 0.4 mg/dL (0.2-1.2)
[2019-08-01 11:20] VITALS: BP 138/73
[2019-08-01 14:41] VITALS: BP 146/77
[2019-08-01 18:23] VITALS: BP 124/75
[2019-08-01 23:23] VITALS: BP 143/67
[2019-08-02 03:01] VITALS: BP 144/67
[2019-08-02 06:21] VITALS: BP 128/73
[2019-08-02 10:42] LABS: POTASSIUM 3.1 mmol/L (3.5-5.1)
[2019-08-02 10:43] LABS: CALCIUM 7.8 mg/dL (8.3-10.5)
[2019-08-02 11:12] VITALS: BP 129/65
[2019-08-02 15:04] VITALS: BP 132/58
[2019-08-02 18:24] VITALS: BP 161/72
[2019-08-02] MEDS ORDERED: ATIVAN0.5 MG PO (18:53)
[2019-08-02 23:05] VITALS: BP 158/74
[2019-08-03 03:00] VITALS: BP 134/72
[2019-08-03 06:20] VITALS: BP 155/74
[2019-08-03 11:32] VITALS: BP 170/73
[2019-08-03 15:28] VITALS: BP 160/77
[2019-08-03 18:49] VITALS: BP 173/76
[2019-08-03 23:00] VITALS: BP 144/73
[2019-08-04 03:14] VITALS: BP 138/78
[2019-08-04 06:18] VITALS: BP 161/72
[2019-08-04 11:00] VITALS: BP 130/81
== END 2019-08-04 14:44 | disposition swing bed (61) | DRG 394 ==
LOC: MED/SURG 17:47
PROVIDERS: Family Medicine; Physician Assistant; ADMIT Nurse Practitioner Primary Care
PROC: 0DB78ZX Excision of Stomach, Pylorus, Via Natural or Artificial Opening Endoscopic, Diagnostic (ICD-10-PCS; principal; 2019-08-03)
DX: K55.9 Vascular disorder of intestine, unspecified (principal); Z68.1 Body mass index [BMI] 19.9 or less, adult; K29.70 Gastritis, unspecified, without bleeding; K44.9 Diaphragmatic hernia without obstruction or gangrene; R63.0 Anorexia; J44.9 Chronic obstructive pulmonary disease, unspecified; E03.9 Hypothyroidism, unspecified; H35.30 Unspecified macular degeneration; K59.00 Constipation, unspecified; R11.0 Nausea; D72.829 Elevated white blood cell count, unspecified; Z90.710 Acquired absence of both cervix and uterus; Z79.82 Long term (current) use of aspirin; Z88.2 Allergy status to sulfonamides
CPT/HCPCS: 00731; A4618; C9113; J0744; J1650; J1940; J2270; J2405; J2704; J2930; J3480; J3490; J7030; J7120; Q9967

== ENCOUNTER 2019-08-04 14:44 | Inpatient (IN) | payer MEDICARE, BC ==
[~2019-08-04] VITALS: Ht 162.6 cm; Wt 44.4 kg
[~2019-08-04 14:44] MED LIST changes: +ATIVAN0.5 MG PO
[2019-08-04 16:54] LABS: ALBUMIN 3.2 g/dL (3.4-4.8)
[2019-08-04 16:56] LABS: CALCIUM 8.4 mg/dL (8.3-10.5)
[2019-08-04 16:57] LABS: TOTAL PROTEIN 5.9 g/dL (6.2-8.1)
[2019-08-04 16:59] LABS: TOTAL BILIRUBIN 0.4 mg/dL (0.2-1.2)
[2019-08-04 17:03] LABS: HEMATOCRIT 31.1 % (37.0-47.0); MEAN CELL VOLUME 85 fl (78-100); MEAN CORPUSCULAR HEMOGLOBIN 28 pg (27-31); MEAN CORPUSCULAR HGB CONC 32 g/dL (33-37); MEAN PLATELET VOLUME 10.3 fl (7.4-10.4); PLATELET COUNT 358 K/mm3 (130-400); RED BLOOD COUNT 3.64 M/mm3 (4.10-5.30); RED CELL DISTRIBUTION WIDTH 15.3 % (11.5-14.5)
[2019-08-04 17:35] LABS: POTASSIUM 2.7 mmol/L (3.5-5.1)
--- NOTE | 2019-08-04 17:45 | NUR ---
Kelley Baumann APRN notified of critical lab values.
[2019-08-04 17:52] LABS: LYMPHOCYTE 17 % (20-51); NEUTROPHILS 75 % (42-75)
[2019-08-04 17:53] LABS: MONOCYTE 6 % (3-10)
[2019-08-04 18:00] VITALS: BP 160/81
[2019-08-04 19:01] VITALS: BP 160/81
--- NOTE | 2019-08-04 21:50 | NUR ---
Pt drank ordered Kcl mixed with o.j. (given by previous shift nurse), and tiera. well. When asked she reported occ. cramping to BLE and stated "I have that all the time due to 'poor circulation;' neg Obed's sign and she denied any increased cramping anywhere. She denied discomfort when asked. She was dozing off to sleep when I entered to assess and to administer scheduled HS meds. Understands use of call light. Instructed for her to please use call light to alert staff should she need to get up from bed (or chair) during the night for any reason, for her safety to offer assistance. She understands.
[2019-08-05 05:44] VITALS: BP 138/73
[2019-08-05 06:10] VITALS: BP 138/73
--- NOTE | 2019-08-05 07:27 | NUR ---
Slept well during the night. No c/o. Report given to oncoming shift nurseSolange.
[2019-08-05 08:17] LABS: POTASSIUM 3.2 mmol/L (3.5-5.1)
[2019-08-05 08:19] LABS: CALCIUM 8.1 mg/dL (8.3-10.5)
--- NOTE | 2019-08-05 16:21 | NUR ---
REPORT RECEIVED FROM RONALD TAYLOR.
[2019-08-05 18:34] VITALS: BP 148/77
--- NOTE | 2019-08-05 19:03 | NUR ---
REPORT PROVIDED TO NIA TAYLOR.
--- NOTE | 2019-08-05 20:50 | NUR ---
PATIENT SLEEPING IN BED. SHIFT ASSESSMENT COMPLETED AT THIS TIME. PATIENT A/O X4, DENIES PAIN. LUNGS CTA, DENIES COUGH OR SHORTNESS OF BREATH. PATIENT REPORTS SLIGHT NAUSEA, DENIES NEED OF MEDICATION. IV TO RIGHT FOREARM CDI, FLUSHES WELL WITHOUT BLOOD RETURN. PATIENT WITHOUT FURTHER NEEDS, WILL CONTINUE TO MONITOR. CALL LIGHT WITHIN REACH AND BED ALARM ON.
[2019-08-06 06:05] LABS: EOS # 0.4 (0.04-0.40); EOS % 4.5 % (1.0-5.0); HEMATOCRIT 27.2 % (37.0-47.0); HEMOGLOBIN 8.6 g/dL (12.5-16.0); LYMPH# 1.7 (1.50-4.00); MEAN CELL VOLUME 86 fl (78-100); MEAN CORPUSCULAR HEMOGLOBIN 27 pg (27-31); MEAN CORPUSCULAR HGB CONC 32 g/dL (33-37); MEAN PLATELET VOLUME 9.8 fl (7.4-10.4); NEU # 5.6 (1.40-6.50); PLATELET COUNT 336 K/mm3 (130-400); RED BLOOD COUNT 3.16 M/mm3 (4.10-5.30); RED CELL DISTRIBUTION WIDTH 15.4 % (11.5-14.5); WHITE BLOOD COUNT 8.8 K/mm3 (4.8-10.8)
[2019-08-06 06:17] LABS: CALCIUM 8.3 mg/dL (8.3-10.5)
[2019-08-06 06:18] VITALS: BP 155/79
[2019-08-06 18:38] VITALS: BP 143/76
--- NOTE | 2019-08-06 19:40 | NUR ---
Report received from Vicky TAYLOR. Resting supine in bed with eyes closed. Awakens easily for assessment. EKG performed at shift change due to tachycardia of 127. Gabriela Baumann reviewed. NNO. Denies pain. Denies shortness of breath. Assessment completed. Bed alrm on. Call light in reach.
--- NOTE | 2019-08-06 20:27 | NUR ---
Rechecked pulse prior to nebulizer tx. 93 bpm at this time. SAO2 94% on RA.
--- NOTE | 2019-08-06 21:15 | NUR ---
Pulse after both nebulizer tx 105. Rests with eyes closed.
--- NOTE | 2019-08-07 05:29 | NUR ---
Has rested well all night. No pain. Pulse rate 89 this AM.
[2019-08-07 06:22] VITALS: BP 155/74
--- NOTE | 2019-08-07 07:07 | NUR ---
Report to Belem TAYLOR.
[2019-08-07 18:41] VITALS: BP 129/77
--- NOTE | 2019-08-07 19:05 | NUR ---
Report received from Belem Powell RN
[2019-08-08 06:06] VITALS: BP 154/76
--- NOTE | 2019-08-08 08:00 | NUR ---
Assessment complete. Patient resting in bed at time of assessment. Able to voice wants/needs. C/O left rib pain, medication and heat pack given for comfort. Will cont to monitor
[2019-08-08 18:38] VITALS: BP 135/73
--- NOTE | 2019-08-08 19:15 | NUR ---
Report received from Jenny Bethea RN
--- NOTE | 2019-08-08 20:12 | NUR ---
Sp02 93% on room air. Heart rate 104. Continues to c/o of pain under left breast along rib cage. Has K-pad to left side of rib cage. Offered voltren gel. Pt agreed, stated it helped with the pain.
[2019-08-09 06:13] VITALS: BP 151/81
--- NOTE | 2019-08-09 10:22 | NUR ---
Assessment complete. Patient resting in chair at time of assessment. Able to voice wants/needs, none at this time. Will cont to monitor
[2019-08-09 18:45] VITALS: BP 147/80
--- NOTE | 2019-08-09 20:00 | NUR ---
ASSMNT COMPLETE, PT HAS NO C/O PAIN OR DISCOMFORT, IN AND READY FOR BED, NO NEEDS EXPRESSED, CALL LIGHT W/I REACH
[2019-08-10 06:04] VITALS: BP 145/69
--- NOTE | 2019-08-10 08:00 | NUR ---
Pt sitting up in chair. Encourged to try and eat some of breakfast and ensure. Pt agrees. Denies any pain. Pt refuses colace capsule and requests rest of pills be crushed. Tolerates well. Call light in reach. Chair alarm on.
--- NOTE | 2019-08-10 12:48 | NUR ---
PT EATS ONLY FEW BITES OF LUNCH REPORTS SHE WILL DRINK ENSURE LATER. PT ENCOURAGED TO EAT/DRINK MORE. PT STATES "IM JUST NOT HUNGRY, ILL EAT WHEN I GET HOME"
[2019-08-10 18:22] VITALS: BP 168/79
[2019-08-11 06:16] VITALS: BP 145/76
--- NOTE | 2019-08-11 14:07 | NUR ---
Call to pt granddaughter Yeny to update that at care plan meeting it was decided for patient to be given 2 day notice for discharge. She reports pt has been using [facility] and would like to continue that for her. Yeny also notified of patient need for cane request per physical therapist. Pt also updated on plan of care and in agreeance. [facility] [place] [facility] home.
[2019-08-11 18:38] VITALS: BP 133/70
--- NOTE | 2019-08-11 20:48 | NUR ---
ASSMNT COMPLETE, PT HAS NO C/O PAIN OR DISCOMFORT, PT READY FOR BED, DENIES NEEDS, CALL LIGHT W/I REACH
[2019-08-12 06:22] VITALS: BP 151/68
--- NOTE | 2019-08-12 16:10 | NUR ---
[facility] She has [facility] them in the past and would like to use them again. [facility]. She states that they will be able to admit pt on Saturday at her Granddaughter's home in [place] and then see pt at her home in [place] starting on Saturday. [facility], fax#[phone].
[2019-08-12 18:16] VITALS: BP 143/74
--- NOTE | 2019-08-12 19:05 | NUR ---
Report received from Solange Castanon RN
--- NOTE | 2019-08-12 21:40 | NUR ---
Sp02 99% on room air. Pulse 63, respirations 20 and even. Denies having any pain. Denies having any needs or concerns.
[2019-08-13 06:23] VITALS: BP 151/73
--- NOTE | 2019-08-13 07:15 | NUR ---
Report given to Solange Castanon RN
[2019-08-13] MEDS ORDERED: IPRATROPIUM BROM3 M1 IH (07:53)
[2019-08-13] MEDS ORDERED: ALBUTEROL SULFAT3 M3 IH (07:54)
[2019-08-13] MEDS ORDERED: BROVANA15 MCG/2 M IH (07:54)
[2019-08-13] MEDS ORDERED: ASPIRIN ADULT L81 M3 PO (08:03)
[2019-08-13] MEDS ORDERED: PANTOPRAZOLE SO40 MG PO (08:04)
[2019-08-13] MEDS ORDERED: LEVOTHYROXIN0.075 MG PO (08:04)
[2019-08-13] MEDS ORDERED: ATIVAN0.5 MG PO (08:06)
[2019-08-13] MEDS ORDERED: PULMICORT R1 MG/2 ML IH (08:06)
[2019-08-13] MEDS ORDERED: ZOFRAN ODT4 MG PO (08:07)
[2019-08-13] MEDS ORDERED: HEALTHYLAX17 GM/Dose PO (08:07)
[2019-08-13 10:48] VITALS: BP 152/83
--- NOTE | 2019-08-13 11:20 | NUR ---
Patient alert and oriented. Denies pain. Patient is smiling and happy she is being discharged. Denies dizziness or shortness of breath. Granddaughter is present, brings in cane that was used by the patient's over 10 years ago. Patient discharged to go home with granddaughter, with home health. Discharge instructions provided to patient and granddaughter. All questions answered. Flu shot was requested and administered prior to discharge. Patient denies needs or additional questions. Out of facility via wheelchair to PO. Transfers into PO without incident. Steady gait noted.
== END 2019-08-13 11:20 | disposition home health service (06) | DRG 948 ==
LOC: MED/SURG 14:44
PROVIDERS: Physician Assistant; ADMIT Nurse Practitioner Primary Care
DX: R53.81 Other malaise (principal); J44.9 Chronic obstructive pulmonary disease, unspecified; E03.9 Hypothyroidism, unspecified; H35.30 Unspecified macular degeneration; K29.70 Gastritis, unspecified, without bleeding; K59.00 Constipation, unspecified; Z79.82 Long term (current) use of aspirin; Z90.710 Acquired absence of both cervix and uterus; Z87.891 Personal history of nicotine dependence; Z88.2 Allergy status to sulfonamides
CPT/HCPCS: J1650

== ENCOUNTER → 2020-07-22 | Outpatient (CLI) | payer MEDICARE, BC ==
[~2020-07-22] MED LIST changes: +ASPIRIN ADULT L81 M3 PO; +HEALTHYLAX17 GM/Dose PO; +PANTOPRAZOLE SO40 MG PO; +ZOFRAN ODT4 MG PO
[2020-07-22 10:04] LABS: EOS # 0.6 (0.04-0.40); EOS % 4.3 % (1.0-5.0); HEMATOCRIT 34.9 % (37.0-47.0); LYMPH# 1.6 (1.50-4.00); MEAN CELL VOLUME 91 fl (78-100); MEAN CORPUSCULAR HEMOGLOBIN 29 pg (27-31); MEAN CORPUSCULAR HGB CONC 32 g/dL (33-37); MEAN PLATELET VOLUME 10.4 fl (7.4-10.4); MONO # 1.1 (0.20-0.80); PLATELET COUNT 326 K/mm3 (130-400); RED BLOOD COUNT 3.82 M/mm3 (4.10-5.30); WHITE BLOOD COUNT 13.1 K/mm3 (4.8-10.8)
[2020-07-22 10:06] LABS: NEU # 9.8 (1.40-6.50)
[2020-07-22 10:21] LABS: URINE APPEARANCE CLEAR; URINE COLOR YELLOW
[2020-07-22 10:22] LABS: URINE BILIRUBIN NEGATIVE (NEGATIVE); URINE BLOOD 50 ery/uL (NEGATIVE); URINE GLUCOSE NEGATIVE (NEGATIVE); URINE KETONE NEGATIVE (NEGATIVE); URINE LEUKOCYTE ESTERASE TRACE (NEGATIVE); URINE MUCUS PRESENT (NOT PRESENT); URINE NITRATE NEGATIVE (NEGATIVE); URINE PROTEIN(semi-quant) TRACE mg/dL (NEGATIVE); URINE UROBILINOGEN NORMAL (NORMAL)
== END ==
LOC: LAB 09:23
PROVIDERS: Family Medicine
DX: J44.0 Chronic obstructive pulmonary disease with (acute) lower respiratory infection (principal); R00.0 Tachycardia, unspecified; K21.9 Gastro-esophageal reflux disease without esophagitis; Z87.440 Personal history of urinary (tract) infections

== ENCOUNTER → 2020-11-16 | Outpatient (CLI) | payer MEDICARE, BC | LOC: LAB 08:49 | DX: R30.9 Painful micturition, unspecified (principal) ==

== ENCOUNTER → 2020-12-20 | Outpatient (CLI) | payer MEDICARE, BC ==
[~2020-12-20] MED LIST changes: +ASPIRIN E.C. 8181 MG PO; +ATORVASTATIN CA80 MG PO; +CEFTRIAXON1 GM/50 M1 IV; +FLUCONAZOLE150 MG PO; +LASIX20 M1 PO; +LISINOPRIL2.5 MG PO; +MACROBID 100 M100 MG; +METOPROLOL SUCC25 M1 PO
[2020-12-20 12:13] LABS: EOS # 0.2 (0.04-0.40); EOS % 1.5 % (1.0-5.0); HEMATOCRIT 36.6 % (37.0-47.0); HEMOGLOBIN 11.3 g/dL (12.5-16.0); LYMPH# 1.8 (1.50-4.00); MEAN CELL VOLUME 92 fl (78-100); MEAN CORPUSCULAR HEMOGLOBIN 28 pg (27-31); MEAN CORPUSCULAR HGB CONC 31 g/dL (33-37); MEAN PLATELET VOLUME 10.4 fl (7.4-10.4); MONO # 0.9 (0.20-0.80); NEU # 7.9 (1.40-6.50); PLATELET COUNT 326 K/mm3 (130-400); RED CELL DISTRIBUTION WIDTH 14.4 % (11.5-14.5); WHITE BLOOD COUNT 10.8 K/mm3 (4.8-10.8)
[2020-12-20 12:20] LABS: ALBUMIN 4.1 g/dL (3.4-4.8); POTASSIUM 4.1 mmol/L (3.5-5.1)
[2020-12-20 12:21] LABS: CALCIUM 9.1 mg/dL (8.3-10.5)
[2020-12-20 12:22] LABS: TOTAL PROTEIN 7.1 g/dL (6.2-8.1)
[2020-12-20 12:24] LABS: TOTAL BILIRUBIN 0.8 mg/dL (0.2-1.2)
[2020-12-20 12:50] LABS: URINE APPEARANCE CLOUDY; URINE BILIRUBIN NEGATIVE (NEGATIVE); URINE BLOOD TRACE (NEGATIVE); URINE COLOR YELLOW; URINE GLUCOSE NEGATIVE (NEGATIVE); URINE KETONE NEGATIVE (NEGATIVE); URINE LEUKOCYTE ESTERASE NEGATIVE (NEGATIVE); URINE MUCUS PRESENT (NOT PRESENT); URINE NITRATE NEGATIVE (NEGATIVE); URINE PROTEIN(semi-quant) TRACE mg/dL (NEGATIVE); URINE UROBILINOGEN NORMAL (NORMAL)
== END ==
LOC: LAB 11:51
PROVIDERS: Family Medicine
DX: E03.9 Hypothyroidism, unspecified (principal); E55.9 Vitamin D deficiency, unspecified; I10 Essential (primary) hypertension; R73.02 Impaired glucose tolerance (oral)